=== PATIENT | female | born 1990 | race Caucasian/White ===

== ENCOUNTER → 2016-10-22 | Outpatient (CLI) | payer OTHER ==
[2015-06-23 22:42] VITALS: BP 98/54
== END | disposition home or self-care (01) ==
LOC: LAB 09:49
PROVIDERS: ATTEND Obstetrics & Gynecology
DX: O09.90 Supervision of high risk pregnancy, unspecified, unspecified trimester (principal)
CPT/HCPCS: 36415; 82950

== ENCOUNTER 2016-12-26 19:04 | Inpatient (IN) | payer OTHER ==
[~2016-12-26] VITALS: Ht 167.6 cm; Wt 73.0 kg
[2016-12-26] MEDS: IV RINGERS,LACTATED 1000ML 1,000 ML IV SCH ×3 (19:57→23:57)
[2016-12-26 20:04] VITALS: BP 109/80
[2016-12-26] MEDS ORDERED: TERBUTALINE 1 MG/ML VIAL. SQ PRN (21:15)
[2016-12-26] MEDS ORDERED: LIDOCAINE 1% PF 30 ML VIAL. INJ PRN (21:15)
[2016-12-26] MEDS ORDERED: 0.9 % SODIUM CHLORIDE 10 ML DISP.SYRIN. IV PRN (21:15)
[2016-12-26] MEDS ORDERED: OXYTOCIN 30 UNIT/500 ML PREMIX 500 ML IV PRN (21:15)
[2016-12-26] MEDS ORDERED: IBUPROFEN 600 MG TABLET. PO PRN (21:15)
[2016-12-26 21:25] LABS: HEMATOCRIT 34.4 % (36.0-47.0); HEMOGLOBIN 11.7 g/dL (12.0-15.5); RED BLOOD COUNT 3.65 x10^6/uL (3.50-5.40); RED CELL DISTRIBUTION WIDTH 13.3 % (11.5-14.5); WHITE BLOOD COUNT 15.3 x10^3/uL (4.0-11.0)
[2016-12-26] MEDS: fentaNYL PF VIAL 100 MCG/2 ML VIAL IV PRN ×3 (21:26→23:31)
[2016-12-26] MEDS ORDERED: L&D EPIDURAL CASSETTE 100 ML PUMP.RESVR. EP ONE (23:55)
[2016-12-26] MEDS ORDERED: L&D EPIDURAL CASSETTE 100 ML EP ONE (23:55)
[2016-12-26] MEDS ORDERED: ROPIVacaine 0.2% IN 0.9%NACL PF 40 MG/20 ML DISP.SYRIN. ONE ×2 (23:55)
[2016-12-27] MEDS ORDERED: L&D EPIDURAL CASSETTE 100 ML EP PRN
[2016-12-27] MEDS ORDERED: ROPIVacaine 0.2% PF 10 ML VIAL. EPI ONE
[2016-12-27] MEDS ORDERED: ONDANSETRON PF 4 MG/2 ML VIAL. IV PRN
[2016-12-27] MEDS ORDERED: NALOXONE 0.4 MG/ML VIAL. IV PRN
[2016-12-27] MEDS ORDERED: ePHEDrine PF IN SALINE 50 MG/5 ML DISP.SYRIN IV PRN
[2016-12-27] MEDS ORDERED: fentaNYL PF VIAL 100 MCG/2 ML VIAL EPI ONE
[2016-12-27] MEDS ORDERED: ePHEDrine PF IN SALINE 50 MG/5 ML DISP.SYRIN IV ONE (01:24)
--- NOTE | 2016-12-27 01:32 | PDOC1 ---
OB - History Hx of Present Care: Good Care Ultrasounds: Normal mid trimester US Obstetrical Complications: None Medical Complications: None Past Family/Social History * Past Medical, Surgical, Family and Obstetric Histories reviewed from chart. Rubella: Immune RPR/VDRL: Negative GBS Status: Negative HBsAG: Negative OB - Chief Complaint & HPI Date of Admission: Date of Admission: Dec 26, 2016 at 19:04 Chief Complaint/History : 2 Para: 1 EGA: 38 Reason for admission: active labor Admission Nurse Assessment Rev: Yes Problems: OB - Admission Exam Physical Exam Vitals: VS - Last 72 Hours, by Label Date Time Temp Pulse Resp B/P (MAP) Pulse Ox O2 Delivery O2 Flow Rate FiO2 12/26/16 22:28 22 Room Air 12/26/16 21:26 22 Room Air 12/26/16 20:04 98.4 93 20 109/80 (90) Room Air 98.4 HEENT: Normal Heart: Regular Rate Lungs: Clear Abdomen: Gravid, Non tender, Soft Extremities: Edema Reflexes: Normal Cervical Dilatation: 4cm Effacement: 75% Station: -2 Membranes: Intact Heart Rate: Normal Accelerations: Accelerations Present Decelerations: No decelerations Contractions on Admission: 6-10 Minutes Apart Intensity: Moderate Text A: 38 wks IUP Active labor P: Admit for labor management. JUNIOR GONZALEZ Jr, MD Dec 27, 2016 01:32
--- NOTE | 2016-12-27 01:34 | PDOC ---
VAGINAL DELIVERY DATE DATE: 12/27/16 TIME: 01:32 : 2 Para: 2 EGA: 38 VAGINAL DELIVERY: VTX VACCUM ASSISTED: No PLACENTA: Spontaneous 6/9 SEX: Male WEIGHT Weight [ 3125 gm] Nuchal Cord: Yes, Times 1 Amniotic Fluid: Thin Meconium PAIN: Epidural EPISIOTOMY: No EXTENSION: No EBL 300 ml COMPLICATIONS none CONDITION pt. stable Signs of Intrauterine Infectio: None Shoulder Dystocia: No Problems: JUNIOR GONZALEZ Jr, MD Dec 27, 2016 01:34
[2016-12-27] MEDS ORDERED: BENZOCAINE 20% TOPICAL AEROSOL SPRAY 57GM CAN. TP PRN (01:45)
[2016-12-27] MEDS ORDERED: OXYTOCIN 30 UNIT/500 ML PREMIX 500 ML IV PRN (01:45)
[2016-12-27] MEDS ORDERED: MAG HYDROX/ALUMINUM HYD/SIMETH 30 ML ORAL.SUSP PO PRN (01:45)
[2016-12-27] MEDS ORDERED: 0.9 % SODIUM CHLORIDE 10 ML DISP.SYRIN. IV PRN (01:45)
[2016-12-27] MEDS ORDERED: SIMETHICONE 80 MG TAB.CHEW PO PRN (01:45)
[2016-12-27] MEDS ORDERED: ZOLPIDEM 5 MG TABLET. PO PRN (01:45)
[2016-12-27] MEDS ORDERED: DOCUSATE SODIUM 100 MG CAPSULE. PO PRN (01:45)
[2016-12-27] MEDS ORDERED: MMR per PROTOCOL. MC PRN (01:45)
[2016-12-27] MEDS ORDERED: HYDROCORTISONE 1% TOPICAL OINTMENT 30GM TUBE. TP PRN (01:45)
[2016-12-27] MEDS ORDERED: MAGNESIUM HYDROXIDE 2,400 MG/30 ML ORAL.SUSP. PO PRN (01:45)
[2016-12-27] MEDS ORDERED: diphenhydrAMINE HCL 25 MG CAPSULE PO PRN (01:45)
[2016-12-27] MEDS ORDERED: PHENYLEPH/MINERAL OIL/PETROLAT RECTAL OINTMENT 28GM TUBE. RC PRN (01:45)
[2016-12-27] MEDS ORDERED: ACETAMINOPHEN 325 MG TABLET. PO PRN (01:45)
[2016-12-27] MEDS: IV RINGERS,LACTATED 1000ML 1,000 ML IV SCH (01:58)
[2016-12-27 05:30] VITALS: BP 110/59
[2016-12-27] MEDS: IBUPROFEN 800 MG TABLET. PO PRN ×2 (05:39→15:27)
[2016-12-27 06:42] VITALS: BP 107/56
[2016-12-27] MEDS: oxyCODONE/APAP 5/325 1 TAB TABLET PO PRN ×4 (08:27→20:43)
[2016-12-27 12:30] VITALS: BP 95/58
[2016-12-27 18:55] VITALS: BP 128/54
[2016-12-28 02:55] VITALS: BP 121/66
[2016-12-28] MEDS: oxyCODONE/APAP 5/325 1 TAB TABLET PO PRN ×3 (02:59→14:48)
[2016-12-28 05:11] LABS: BASO # 0.1 x10^3/uL (0.0-0.2); BASO % 0 % (0-3); EOS % 1 % (0-3); HEMATOCRIT 27.9 % (36.0-47.0); HEMOGLOBIN 9.8 g/dL (12.0-15.5); LYMPH # 3.2 x10^3/uL (1.0-4.8); LYMPH % 21 % (24-48); MEAN CORPUSCULAR HEMOGLOBIN 33 pg (25-35); MEAN CORPUSCULAR HGB CONC 35 g/dL (31-37); MEAN CORPUSCULAR VOLUME 93 fL (79-100); MONO % 7 % (0-9); NEUT % 71 % (31-73); PLATELET COUNT 161 x10^3/uL (140-400); RED BLOOD COUNT 2.98 x10^6/uL (3.50-5.40); RED CELL DISTRIBUTION WIDTH 13.3 % (11.5-14.5); WHITE BLOOD COUNT 15.1 x10^3/uL (4.0-11.0)
[2016-12-28 07:28] LABS: RPR REFLEX Non Reactive (Non Reactive)
[2016-12-28] MEDS ORDERED: FERROUS SULFATE 325 MG TABLET. PO SCH (08:00)
[2016-12-28 10:30] VITALS: BP 96/53
[2016-12-28] MEDS: IBUPROFEN 800 MG TABLET. PO PRN (11:26)
--- NOTE | 2016-12-28 15:52 | PDOC ---
OB Progress Note Date of Service 12/28/16 Time of Evaluation 1550 Notes Pt. feeling well. No complaints. Lab Laboratory Tests Test 12/26/16 21:05 12/28/16 04:13 White Blood Count 15.3 x10^3/uL (4.0-11.0) 15.1 x10^3/uL (4.0-11.0) Red Blood Count 3.65 x10^6/uL (3.50-5.40) 2.98 x10^6/uL (3.50-5.40) Hemoglobin 11.7 g/dL (12.0-15.5) 9.8 g/dL (12.0-15.5) Hematocrit 34.4 % (36.0-47.0) 27.9 % (36.0-47.0) Mean Corpuscular Volume 94 fL (79-100) 93 fL (79-100) Mean Corpuscular Hemoglobin 32 pg (25-35) 33 pg (25-35) Mean Corpuscular Hemoglobin Concent 34 g/dL (31-37) 35 g/dL (31-37) Red Cell Distribution Width 13.3 % (11.5-14.5) 13.3 % (11.5-14.5) Platelet Count 213 x10^3/uL (140-400) 161 x10^3/uL (140-400) RPR Titer Additional Testing Non reactive (Non Reactive) Neutrophils (%) (Auto) 71 % (31-73) Lymphocytes (%) (Auto) 21 % (24-48) Monocytes (%) (Auto) 7 % (0-9) Eosinophils (%) (Auto) 1 % (0-3) Basophils (%) (Auto) 0 % (0-3) Neutrophils # (Auto) 10.7 x10^3uL (1.8-7.7) Lymphocytes # (Auto) 3.2 x10^3/uL (1.0-4.8) Monocytes # (Auto) 1.0 x10^3/uL (0.0-1.1) Eosinophils # (Auto) 0.1 x10^3/uL (0.0-0.7) Basophils # (Auto) 0.1 x10^3/uL (0.0-0.2) Laboratory Tests Test 12/28/16 04:13 White Blood Count 15.1 x10^3/uL (4.0-11.0) Red Blood Count 2.98 x10^6/uL (3.50-5.40) Hemoglobin 9.8 g/dL (12.0-15.5) Hematocrit 27.9 % (36.0-47.0) Mean Corpuscular Volume 93 fL (79-100) Mean Corpuscular Hemoglobin 33 pg (25-35) Mean Corpuscular Hemoglobin Concent 35 g/dL (31-37) Red Cell Distribution Width 13.3 % (11.5-14.5) Platelet Count 161 x10^3/uL (140-400) Neutrophils (%) (Auto) 71 % (31-73) Lymphocytes (%) (Auto) 21 % (24-48) Monocytes (%) (Auto) 7 % (0-9) Eosinophils (%) (Auto) 1 % (0-3) Basophils (%) (Auto) 0 % (0-3) Neutrophils # (Auto) 10.7 x10^3uL (1.8-7.7) Lymphocytes # (Auto) 3.2 x10^3/uL (1.0-4.8) Monocytes # (Auto) 1.0 x10^3/uL (0.0-1.1) Eosinophils # (Auto) 0.1 x10^3/uL (0.0-0.7) Basophils # (Auto) 0.1 x10^3/uL (0.0-0.2) Medications Current Medications Ringer's Solution 1,000 ml @ 125 mls/hr Q8H IV Last administered on 12/27/16 01:58; Start 12/26/16 at 19:57; Stop 12/27/16 at 18:28; Status DC Sodium Chloride (Normal Saline Flush) 3 ml QSHIFT PRN IV AFTER MEDS AND BLOOD DRAWS; Start 12/26/16 at 21:15; Stop 12/27/16 at 18:28; Status DC Ringer's Solution 1,000 ml @ 125 mls/hr Q8H IV Last administered on 12/26/16 23:57; Start 12/26/16 at 21:01; Stop 12/27/16 at 18:28; Status DC Fentanyl Citrate (Fentanyl 2ml Vial) 100 mcg PRN Q30MIN PRN IV Severe pain Last administered on 12/26/16t 23:31; Start 12/26/16 at 21:15; Stop 12/27/16 at 18:28; Status DC Terbutaline Sulfate (Brethine) 0.25 mg 1X PRN PRN SQ SEE COMMENTS; Start at 21:15; Stop 12/27/16 at 18:28; Status DC Lidocaine HCl 30 ml 1X PRN PRN INJ SEE COMMENTS; Start 12/26/16 at 21:15; Stop 12/27/16 at 18:28; Status DC Oxytocin/Sodium Chloride 500 ml @ 0 mls/hr CONT PRN PRN IV Post delivery bleeding Last administered on 12/26/16t 23:57; Start 12/26/16 at 21:15 Ibuprofen (Motrin) 600 mg PRN Q6HRS PRN PO PAIN; Start 12/26/16 at 21:15; Stop 12/27/16 at 18:28; Status DC Ephedrine Sulfate 10 mg PRN Q2MIN PRN IV IF SBP<90; Start 12/27/16 at 00:00 Naloxone HCl (Narcan) 0.04 mg PRN Q1MIN PRN IV SEE COMMENTS; Start 12/27/16 at 00:00; Stop 12/27/16 at 18:28; Status DC Fentanyl Citrate (Fentanyl 2ml Vial) 100 mcg 1X ONCE EPI ; Start 12/27/16 at 00 :00; Stop 12/27/16 at 18:28; Status DC Ropivacaine/ Fentanyl/NS 100 ml @ 14 mls/hr CONT PRN EP PAIN; Start 12/27/16 at 00:00; Stop 12/27/16 at 18:28; Status DC Ondansetron HCl (Zofran) 4 mg PRN Q6HRS PRN IV NAUSEA/VOMITING; Start 12/27/16 at 00:00 Ropivacaine (Naropin 0.2%) 20 ml 1X ONCE EPI ; Start 12/27/16 at 00:00; Stop at 00:01; Status DC Ropivacaine/ Fentanyl/NS 100 ml @ As Directed STK-MED ONCE EP ; Start 12/26/16 at 23:55; Stop 12/27/16 at 18:28; Status DC Ropivacaine/ Sodium Chloride 40 mg STK-MED ONCE .ROUTE ; Start 12/26/16 at 23:55 ; Stop 12/26/16 at 23:56; Status DC Ephedrine Sulfate 50 mg STK-MED ONCE IV ; Start 12/27/16 at 01:24; Stop at 01:25; Status DC Sodium Chloride (Normal Saline Flush) 10 ml QSHIFT PRN IV AFTER MEDS AND BLOOD DRAWS; Start 12/27/16 at 01:45 Oxytocin/Sodium Chloride 500 ml @ 62.5 mls/hr CONT PRN IV SEE I/O RECORD; Start 12/27/16 at 01:45; Stop 12/27/16 at 09:44; Status DC Acetaminophen (Tylenol) 650 mg PRN Q6HRS PRN PO MILD PAIN / TEMP; Start at 01:45 Ibuprofen (Motrin) 800 mg PRN Q8HRS PRN PO INFLAMMATION/PAIN PREVENTION Last administered on 12/28/16t 11:26; Start 12/27/16 at 01:45 Docusate Sodium (Colace) 100 mg PRN BID PRN PO CONSTIPATION Last administered on 12/27/16t 08:26; Start 12/27/16 at 01:45 Magnesium Hydroxide (Milk Of Magnesia) 2,400 mg PRN DAILY PRN PO CONSTIPATION; Start 12/27/16 at 01:45 Al Hydroxide/Mg Hydroxide (Mylanta Plus Xs) 30 ml PRN Q4HRS PRN PO HEARTBURN / GAS; Start 12/27/16 at 01:45 Simethicone (Gas-X) 80 mg PRN AFTMEALHC PRN PO GAS / BLOATING; Start 12/27/16 at 01:45 Diphenhydramine HCl (Benadryl) 25 mg PRN Q6HRS PRN PO ITCHING; Start 12/27/16 at 01:45 Benzocaine (Americaine) 1 spray PRN QID PRN TP TOPICAL PAIN; Start 12/27/16 at 01:45 Phenyleph/Shark Oil/Min Oil/Petrol (Preparation H) 1 perlita PRN QID PRN RC RECTAL PAIN; Start 12/27/16 at 01:45 Hydrocortisone (Cortaid) 1 perlita PRN QID PRN TP PERINEAL PAIN; Start 12/27/16 at 01:45 Ferrous Sulfate (Feosol) 325 mg BIDWMEALS PO Last administered on 12/28/16 08: 45; Start 12/28/16 at 08:00 Zolpidem Tartrate (Ambien) 5 mg PRN QHS PRN PO INSOMNIA, MAY REPEAT X1 Last administered on 12/27/16 20:43; Start 12/27/16 at 01:45 Info (Do NOT chart on this placeholder) 1 ea 1X PRN PRN MC SEE COMMENTS; Start 12/27/16 at 01:45 Info (Do NOT chart on this placeholder) 1 ea 1X PRN PRN MC SEE COMMENTS; Start 12/27/16 at 01:45; Stop 12/27/16 at 18:28; Status DC Oxycodone/ Acetaminophen (Percocet 5/325) 2 tab PRN Q4HRS PRN PO MODERATE PAIN , SEVERE PAIN Last administered on 12/28/16 14:48; Start 12/27/16 at 01:45 Ropivacaine/ Fentanyl/NS ([id number] 3 Mcg-0.1%) 100 ml STK-MED ONCE EP ; Start 12/26/16 at 23:55; Stop 12/27/16 at 18:28; Status DC Ropivacaine/ Sodium Chloride 40 mg STK-MED ONCE .ROUTE ; Start 12/26/16 at 23:55 ; Stop 12/27/16 at 10:00; Status DC Active Scripts Active Reported No Known Medications Prior To Admisstion (Info) Each 1 Each MC Exam Abd: soft,non tender, fundus firm Assessment PPD#1 s/p Plan of Care: See new orders (D/c home.) JUNIOR GONZALEZ Jr, MD Dec 28, 2016 15:52
--- NOTE | 2016-12-28 15:53 | DISCH ---
DISCHARGE INSTRUCTIONS Condition on Discharge Condition on Discharge: Stable Activity After Discharge Activity Instructions for Disc: Activity as tolerated Lifting Instructions after Dis: No heavy lifting Driving Instructions after Dis: Do not drive today Diet after Discharge Diet after Discharge: Regular Contacting the DROnel after DC Call your doctor for: Concerns you may have Follow-Up Follow up with: Dr. Valverde in 6 weeks. JUNIOR VALVERDE Jr, MD Dec 28, 2016 15:53
[2016-12-28] MEDS ORDERED: IBUP-1060 PO (15:54)
[2016-12-28] MEDS ORDERED: OXYC-323 PO (15:54)
[2016-12-28 15:55] VITALS: BP 105/65
== END 2016-12-28 16:20 | disposition home or self-care (01) | DRG 775 ==
LOC: INTOOBSV 19:04 → 3 SO LND 19:04 → OBSVTOIN 19:04 → 3 SO LND 12-27 05:20
PROVIDERS: ADMIT Obstetrics & Gynecology; ATTEND Obstetrics & Gynecology
PROC: 10E0XZZ Delivery of Products of Conception, External Approach (ICD-10-PCS; principal; 2016-12-27)
PROC: 00HU33Z Insertion of Infusion Device into Spinal Canal, Percutaneous Approach (ICD-10-PCS; 2016-12-27)
PROC: 3E0R3CZ (ICD-10-PCS; 2016-12-27)
DX: O77.0 Labor and delivery complicated by meconium in amniotic fluid (principal); Z37.0 Single live birth; Z3A.38 38 weeks gestation of pregnancy
CPT/HCPCS: 36415; 85025; 85027; 86593; 86850; 86900; 86901; G0378; J2590; J2795; J3010; J7120